=== PATIENT | female | born 2000 | race Hispanic/Latino ===

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

== ENCOUNTER 2021-09-30 19:13 | Emergency (ER) | payer BC ==
[~2021-09-30 19:13] MED LIST changes: +HYDR-3729 PO; +ONDN4T PO
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
[2021-09-30 19:52] VITALS: BP 126/83
== END 2021-09-30 19:52 | disposition home or self-care (01) ==
LOC: EDUNIT# 19:13 → ER 19:16
DX: S40.022A Contusion of left upper arm, initial encounter (principal); V86.95XA Unspecified occupant of 3- or 4- wheeled all-terrain vehicle (ATV) injured in nontraffic accident, initial encounter; Y92.410 Unspecified street and highway as the place of occurrence of the external cause
CPT/HCPCS: 99281

== ENCOUNTER 2022-02-23 14:59 | Emergency (ER) | payer BC ==
[~2022-02-23] VITALS: Ht 165.1 cm; Wt 90.7 kg
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
[2022-02-23 16:03] VITALS: BP 127/90
== END 2022-02-23 16:05 | disposition home or self-care (01) ==
LOC: EDUNIT# 14:59 → ER 15:01
DX: O26.891 Other specified pregnancy related conditions, first trimester (principal); R11.0 Nausea; Z3A.01 Less than 8 weeks gestation of pregnancy
CPT/HCPCS: 99281

== ENCOUNTER 2022-03-11 08:10 | Emergency (ER) | payer BC ==
[~2022-03-11] VITALS: Ht 162 cm; Wt 84.0 kg
--- NOTE | 2022-03-11 08:35 | ED GU-Female ---
General Chief Complaint: OB > 20 WEEKS Stated Complaint: VAGINAL BLEEDING | 8 WKS Nursing Triage Note: PT AMB TO RM 6 PT CO OF HAVING CRAMPING AND VAGINAL BLEEDING, PT STATES HAD SPOTTING THIS WEEKEND AND INCREASE IN BLEEDING LIKE PERIOD BLEEDING. PT RATE CRAMPING PAIN 08/13. PT HAS HX OF GENITAL HERPES. LMP 02/15/22. THIS IS PT FIRST Source: patient Exam Limitations: no limitations History of Present Illness Date Seen by Provider: Mar 11, 2022 Time Seen by Provider: 08:34 Initial Comments Patient is a 21-year-old female G1, P0 who presents to the emergency department with a chief complaint of vaginal bleeding onset over the last few days. LMP 01/20/22, with EGA 7 04/12' due date 10/27/22. She states that initially started out as spotting and has now progressed to a little bit heavier bleeding. She states its not quite like a menstrual cycle as of yet. She does have lower lower abdominal cramping as well as a mild headache currently. Bleeding did not come on after intercourse it started before. No fevers chills, no burning with urination. Patient tells me that she has tested positive for herpes in the past. No current outbreaks. Has already obtained her labs and reports her blood type is O+. All other review of systems reviewed and negative except as stated. Timing/Duration: other ("few days") Severity/Quality: mild Activities at Onset: none Sexual [place] History: single partner Associated Symptoms: other (headache; cramps) Allergies and Home Medications Allergies Coded Allergies: No Known Drug Allergies (Unverified , 09/21/13) Patient Home Medication List Home Medication List Reviewed: Yes Hydrocodone/Acetaminophen (Lortab 5-325 mg Tablet) 1 Each Tablet, 1-2 EACH PO Q6H Prescribed by: DOC RICKS on 04/16/16 1613 Ondansetron HCl (Zofran) 4 Mg Tab, 4 MG PO Q4H Prescribed by: FAVIAN PARKER on 04/17/16 1339 Review of Systems Review of Systems Constitutional: see HPI EENTM: no symptoms reported Respiratory: no symptoms reported Cardiovascular: no symptoms reported Gastrointestinal: abdominal pain Genitourinary: no symptoms reported : Yes Expected Date of Delivery: Oct 27, 2022 LMP: Jan 20, 2022 Psychiatric/Neurological: Headache All Other Systemes Reviewed Negative Unless Noted: Yes Past Zhtkaqa-Nhxanp-Lcfqbt Hx Patient Social History Tobacco Use?: No Substance use?: No Alcohol Use?: No Pt feels they are or have been: No Immunizations Up To Date Tetanus Booster (TDap): Unknown Influenza Vaccine Up-to-Date: No; Not Current Seasonal Allergies Seasonal Allergies: No Past Medical History Surgery/Hospitalization HX: APPY Last Menstrual Period: Feb 15, 2022 Reproductive Disorders: No Female Reproductive Disorders: Denies HIV/AIDS: No Loss of Vision: Denies Adverse Reaction/Blood Tranf: No Family Medical History No Pertinent Family Hx Physical Exam Vital Signs Vital Signs - First Documented 03/11/22 08:17 Temp 37.1 Pulse 99 Resp 18 B/P (MAP) 126/74 (91) Pulse Ox 100 Capillary Refill : Less Than 3 Seconds Height, Weight, BMI Height: 5'3.00" Weight: 168lbs. 0.0oz. [id number]; 32.00 BMI Method:Stated General Appearance: WD/WN, no apparent distress HEENT: PERRL/EOMI Cardiovascular: regular rate, rhythm Respiratory: lungs clear, normal breath sounds, no respiratory distress, no accessory muscle use Gastrointestinal: normal bowel sounds, non tender, soft Extremities: normal range of motion, normal inspection Neurologic/Psychiatric: no motor/sensory deficits, alert, normal mood/affect, oriented x 3 Skin: normal color, warm/dry Progress/Results/Core Measures Suspected Sepsis SIRS Temperature: Pulse: 99 Respiratory Rate: 18 Laboratory Tests 03/11/22 08:47: White Blood Count 5.6 Blood Pressure 126 /74 Mean: 91 Laboratory Tests 03/11/22 08:47: Platelet Count 277 Results/Orders Lab Results Laboratory Tests Test 03/11/22 08:44 03/11/22 08:47 Range/Units Urine Color YELLOW Urine Clarity CLEAR Urine pH 7.0 5-9 Urine Specific [place] <=1.005 1.016-1.022 Urine Protein NEGATIVE NEGATIVE Urine Glucose (UA) NEGATIVE NEGATIVE Urine Ketones NEGATIVE NEGATIVE Urine Nitrite NEGATIVE NEGATIVE Urine Bilirubin NEGATIVE NEGATIVE Urine Urobilinogen 0.2 < = 1.0 MG/DL Urine Leukocyte Esterase NEGATIVE NEGATIVE Urine RBC (Auto) NEGATIVE NEGATIVE Urine RBC NONE /HPF Urine WBC NONE /HPF Urine Squamous Epithelial Cells 0-2 /HPF Urine Crystals NONE /LPF Urine Bacteria NEGATIVE /HPF Urine Casts NONE /LPF Urine Mucus NEGATIVE /LPF Urine Culture Indicated NO White Blood Count 5.6 4.3-11.0 10^3/uL Red Blood Count 4.29 3.80-5.11 10^6/uL Hemoglobin 12.9 11.5-16.0 g/dL Hematocrit 37 35-52 % Mean Corpuscular Volume 87 80-99 fL Mean Corpuscular Hemoglobin 30 25-34 pg Mean Corpuscular Hemoglobin Concent 35 32-36 g/dL Red Cell Distribution Width 12.0 10.0-14.5 % Platelet Count 277 130-400 10^3/uL Mean Platelet Volume 10.4 9.0-12.2 fL Immature Granulocyte % (Auto) 0 % Neutrophils (%) (Auto) 76 H 42-75 % Lymphocytes (%) (Auto) 11 L 12-44 % Monocytes (%) (Auto) 12 0-12 % Eosinophils (%) (Auto) 1 0-10 % Basophils (%) (Auto) 0 0-10 % Neutrophils # (Auto) 4.2 1.8-7.8 10^3/uL Lymphocytes # (Auto) 0.6 L 1.0-4.0 10^3/uL Monocytes # (Auto) 0.7 0.0-1.0 10^3/uL Eosinophils # (Auto) 0.0 0.0-0.3 10^3/uL Basophils # (Auto) 0.0 0.0-0.1 10^3/uL Immature Granulocyte # (Auto) 0.0 0.0-0.1 10^3/uL Human Chorionic Gonadotropin, Quant [id number] H <5 MIU/ML My Orders Orders - RIVKA ANDERSEN MD Cbc With Automated Diff (03/11/22 09:10) Hcg,Quantitative (03/11/22 09:10) Urinalysis (03/11/22 09:10) Vital Signs/I&O Capillary Refill : Less Than 3 Seconds Blood Pressure Mean: 91 Progress Note : Time: 10:52 Progress Note Patient seen and evaluated, 21-year-old with vaginal bleeding and cramping. Evaluation today includes a CBC, urinalysis and beta quant. Her beta quant is greater than 50,000. Patient reports known blood type O POS. Pelvic exam was not performed. No complaints of or concerns for STI. Her urine is clean, no bacteria. Her CBC is normal. Bedside ultrasound was used to evaluate . Good decidual reaction was noted, yolk sac was noted. There seemed to be a hint of cardiac activity in the 80s range. Patient's vital signs have been stable. She has follow-up at [facility] with Dr. Hernandez. We will send her ou t with an outpatient order for repeat beta quant on . Precautions for threatened miscarriage given, no intercourse, no tampons, no hot baths. She verbalized understanding. All questions are sought and answered. Departure Impression Primary Impression: 7 weeks gestation of Additional Impression: Threatened miscarriage in early Disposition: HOME, SELF-CARE Condition: Stable Departure-Patient Inst. Decision time for Depature: 10:54 Referrals: [facility] (PCP/Family) Primary Care Physician Patient Instructions: Bleeding in Early ED Add. Discharge Instructions: All vaginal bleeding in early is referred to as a "threatened miscarriage". You may notice that you continue to bleed off and on over the next week. As long as the bleeding is not getting worse, heavy like a heavy menstrual period please follow-up with Dr. Hernandez. You can take extra strength Tylenol 2 tablets every 6 hours as needed for cramping. No intercourse/sex, tampons or hot baths until you are cleared by Dr. Hernandez. Continue your vitamins. Return to the emergency department for any new, concerning or emergent complai nts. I have sent you out with an order for a repeat hormone level to be obtained on . Dr. Hernandez or [facility] clinic will follow up with you on this level. your hormone level was 58,328 today. It should be over 100,000 on . Work/School Note: Work Release Form Date Seen in the Emergency Department: Mar 11, 2022 Return to Work: Mar 12, 2022 Copy Copies To 1: JAH HERNANDEZ MD, KATHRYN M MD Mar 11, 2022 08:35
[2022-03-11 09:18] LABS: BASOPHILS % (AUTO) 0 % (0-10); EOSINOPHILS % (AUTO) 1 % (0-10); HEMATOCRIT 37 % (35-52); HEMOGLOBIN 12.9 g/dL (11.5-16.0); LYMPHOCYTES # (AUTO) 0.6 10^3/uL (1.0-4.0); LYMPHOCYTES % (AUTO) 11 % (12-44); MEAN CORPUSCULAR HEMOGLOBIN 30 pg (25-34); MEAN CORPUSCULAR HGB CONC 35 g/dL (32-36); MEAN CORPUSCULAR VOLUME 87 fL (80-99); MEAN PLATELET VOLUME 10.4 fL (9.0-12.2); MONOCYTES # (AUTO) 0.7 10^3/uL (0.0-1.0); MONOCYTES % (AUTO) 12 % (0-12); NEUTROPHILS # (AUTO) 4.2 10^3/uL (1.8-7.8); NEUTROPHILS % (AUTO) 76 % (42-75); PLATELET COUNT 277 10^3/uL (130-400); WHITE BLOOD COUNT 5.6 10^3/uL (4.3-11.0)
[2022-03-11 09:29] LABS: BILIRUBIN,URINE NEGATIVE (NEGATIVE); CLARITY,URINE CLEAR; COLOR,URINE YELLOW; GLUCOSE, URINE (UA) NEGATIVE (NEGATIVE); KETONES,URINE NEGATIVE (NEGATIVE); LEUKOCYTE ESTERASE ,URINE NEGATIVE (NEGATIVE); NITRITE,URINE NEGATIVE (NEGATIVE); PROTEIN,URINE NEGATIVE (NEGATIVE)
[2022-03-11 09:39] LABS: BACTERIA,URINE NEGATIVE /HPF; SQUAMOUS EPITHELIAL CELL,UR 0-2 /HPF
[2022-03-11 11:14] VITALS: BP 126/74
== END 2022-03-11 11:14 | disposition home or self-care (01) ==
LOC: EDUNIT# 08:10 → ER 08:13
DX: O20.0 Threatened abortion (principal); Z3A.01 Less than 8 weeks gestation of pregnancy; Z28.310 Unvaccinated for COVID-19
CPT/HCPCS: 36415; 81000; 84702; 85025; 99282

== ENCOUNTER → 2022-03-13 | Outpatient (CLI) | payer BC | LOC: LAB 16:47 | PROVIDERS: ATTEND Registered Nurse | DX: O20.0 Threatened abortion (principal) | CPT/HCPCS: 36415; 84702 ==

== ENCOUNTER 2022-10-20 00:58 | Inpatient (IN) | payer BC, MEDICAID ==
[~2022-10-20] VITALS: Ht 162.6 cm; Wt 91.4 kg
[2022-10-20] VITALS (70 sets, daily range): BP systolic 88–152; BP diastolic 51–106
[2022-10-20] MEDS ORDERED: MINERAL OIL 30 ML UDC TOP PRN (02:15)
[2022-10-20 02:25] LABS: BASOPHILS % (AUTO) 0 % (0-10); EOSINOPHILS # (AUTO) 0.1 10^3/uL (0.0-0.3); EOSINOPHILS % (AUTO) 1 % (0-10); HEMATOCRIT 36 % (35-52); HEMOGLOBIN 12.4 g/dL (11.5-16.0); LYMPHOCYTES # (AUTO) 1.9 10^3/uL (1.0-4.0); LYMPHOCYTES % (AUTO) 19 % (12-44); MEAN CORPUSCULAR HEMOGLOBIN 29 pg (25-34); MEAN CORPUSCULAR HGB CONC 34 g/dL (32-36); MEAN CORPUSCULAR VOLUME 85 fL (80-99); MEAN PLATELET VOLUME 10.8 fL (9.0-12.2); MONOCYTES # (AUTO) 0.8 10^3/uL (0.0-1.0); MONOCYTES % (AUTO) 8 % (0-12); NEUTROPHILS # (AUTO) 6.9 10^3/uL (1.8-7.8); NEUTROPHILS % (AUTO) 70 % (42-75); PLATELET COUNT 255 10^3/uL (130-400); WHITE BLOOD COUNT 9.9 10^3/uL (4.3-11.0)
[2022-10-20 02:27] LABS: BILIRUBIN,URINE NEGATIVE (NEGATIVE); CLARITY,URINE CLOUDY; COLOR,URINE YELLOW; GLUCOSE, URINE (UA) NEGATIVE (NEGATIVE); KETONES,URINE NEGATIVE (NEGATIVE); LEUKOCYTE ESTERASE ,URINE 1+ (NEGATIVE); NITRITE,URINE NEGATIVE (NEGATIVE); PROTEIN,URINE 1+ (NEGATIVE)
[2022-10-20] MEDS ORDERED: D5 LR IV SOLUTION 1,000 ML IV ONE (02:45)
[2022-10-20] MEDS: D5 LR IV SOLUTION 1,000 ML IV SCH ×3 (02:49→18:22)
[2022-10-20] MEDS ORDERED: BUTORPHANOL INJ 2 MG/ML (STADOL) VIAL IV PRN (03:00)
[2022-10-20 03:11] LABS: AMORPHOUS SEDIMENT,UR LARGE AMOR URATES /LPF; BACTERIA,URINE FEW /HPF; WBC,URINE 25-50 /HPF
[2022-10-20 03:12] LABS: YEAST,URINE FEW /HPF
[2022-10-20] MEDS ORDERED: CATHETER FLUSH 10 ML SYR IV SCH ×2 (06:00→22:00)
--- NOTE | 2022-10-20 07:14 | History & Physical-OB ---
KIMBERLY ROBERTS MD 10/20/22 0714: OB - Chief Complaint & HPI Date/Time Date of Admission: Date of Admission: Oct 20, 2022 at 01:48 Date seen by a Provider: Oct 20, 2022 Time Seen by a Provider: 07:00 Chief Complaint/History OB-Reason for Admission/Chief: Onset of Labor (Pt felt SROM around 0000 on 10/20/22. She reported a burst of clear fluid leakage. She reported to OB triage around 0100 on 10/20/22. She declined epidural pain management. First cervical check was 2/80/-3 at 0200. This provider saw the patient at 0700 on 10/20/22 and repeat cervical check was completed around 0720, which was 4/80/-2. Verbal confirmation of GBS NEG status from clinic in [place] was given upon admission. ) Hx : 1 Hx Para: 0 Hx Last Menstrual Period: 01/2022 Expected Date of Delivery: Nov 02, 2022 Gestational Age in Weeks: 38 Gestational Age in Days: 1 Indication for induction: other (SROM) History of Labs See [facility] initial and routine OB records from clinic in [place] Other Onset of labor with favorable cervix, LOF. Allergies and Home Medications Allergies Coded Allergies: No Known Drug Allergies (Unverified , 09/21/13) Patient Home Medication List Home Medication List Reviewed: Yes Vit/Iron Fumarate/FA ( Vitamins Tablet) 28 Mg Iron-800 Mcg Tablet, 1 EACH PO DAILY, (Reported) Entered as Reported by: KIMBERLY ROBERTS on 10/20/22 1150 Last Action: Reviewed Discontinued Medications Hydrocodone/Acetaminophen (Lortab 5-325 mg Tablet) 1 Each Tablet, 1-2 EACH PO Q6H Prescribed by: DOC RICKS on 04/16/16 1613 Last Action: Discontinued Ondansetron HCl (Zofran) 4 Mg Tab, 4 MG PO Q4H Prescribed by: FAVIAN PARKER on 04/17/16 1339 Last Action: Discontinued OB - History Hx of Present Care: Yes Ultrasounds: Other (Awaiting outside records for review of US) Obstetrical Complications: None Medical Complications: None Obstetrical History Hx : 1 Hx Para: 0 Hx Termination: No Hx Multiple Gestation: No Hx Ectopic : No Hx Stillbirth: No Hx Complication: No Hx Induced Hypertens: No Hx Maternal Gestational Diabet: No Hx Hemorrhage: No Delivery History Hx Blood Disorders: No Adverse Rxn to Tranfusion: No Patient Past Medical History No significant medical Hx. Immunizations Hepatitis A: No Hepatitis B: No Tetanus Booster (TDap): Unknown OB - Admission Exam Physical Exam Vitals: Vital Signs 10/20/22 03:10 Temp 36.0 Pulse 75 Resp 18 B/P (MAP) 123/65 (84) Pulse Ox 98 O2 Delivery Room Air HEENT: Oropharynx Normal Heart: Rhythm Normal Lungs: Clear Abdomen: Gravid Extremities: Normal Cervical Dilatation: 4cm Effacement: Other (80) Station: -2 Membranes: Ruptured Amniotic Fluid: Clear Heart Rate: 130's Accelerations: Accelerations Present Decelerations: No Decelerations Short Term Variability: Present Mental Health Practitioner Variability: Average (6-25) Contractions on Admission: < 5 Minutes Apart Intensity: Mild Ferrara Scoring Tool (Modified) Dilation (cm): 3-4cm (2) Effacement (%): 80-100% (3) Descent/Station: -2 (1) Cervix Consistency: Soft (2) Cervix Position: Anterior (2) Ferrara Score: 10 Labs Laboratory Tests Test 10/20/22 02:00 Range/Units White Blood Count 9.9 4.3-11.0 10^3/uL Red Blood Count 4.22 3.80-5.11 10^6/uL Hemoglobin 12.4 11.5-16.0 g/dL Hematocrit 36 35-52 % Mean Corpuscular Volume 85 80-99 fL Mean Corpuscular Hemoglobin 29 25-34 pg Mean Corpuscular Hemoglobin Concent 34 32-36 g/dL Red Cell Distribution Width 12.4 10.0-14.5 % Platelet Count 255 130-400 10^3/uL Mean Platelet Volume 10.8 9.0-12.2 fL Immature Granulocyte % (Auto) 1 % Neutrophils (%) (Auto) 70 42-75 % Lymphocytes (%) (Auto) 19 12-44 % Monocytes (%) (Auto) 8 0-12 % Eosinophils (%) (Auto) 1 0-10 % Basophils (%) (Auto) 0 0-10 % Neutrophils # (Auto) 6.9 1.8-7.8 10^3/uL Lymphocytes # (Auto) 1.9 1.0-4.0 10^3/uL Monocytes # (Auto) 0.8 0.0-1.0 10^3/uL Eosinophils # (Auto) 0.1 0.0-0.3 10^3/uL Basophils # (Auto) 0.0 0.0-0.1 10^3/uL Immature Granulocyte # (Auto) 0.1 0.0-0.1 10^3/uL Urine Color YELLOW Urine Clarity CLOUDY Urine pH 7.0 5-9 Urine Specific [place] 1.020 1.016-1.022 Urine Protein 1+ H NEGATIVE Urine Glucose (UA) NEGATIVE NEGATIVE Urine Ketones NEGATIVE NEGATIVE Urine Nitrite NEGATIVE NEGATIVE Urine Bilirubin NEGATIVE NEGATIVE Urine Urobilinogen 1.0 < = 1.0 MG/DL Urine Leukocyte Esterase 1+ H NEGATIVE Urine RBC (Auto) TRACE-I H NEGATIVE Urine RBC 2-5 H /HPF Urine WBC 25-50 H /HPF Urine Squamous Epithelial Cells 10-25 H /HPF Urine Crystals PRESENT H /LPF Urine Amorphous Sediment LARGE YOSHI URATES H /LPF Urine Bacteria FEW H /HPF Urine Casts NONE /LPF Urine Mucus NEGATIVE /LPF Urine Yeast FEW H /HPF Urine Culture Indicated YES Syphilis Total Antibody Negative Negative OB - Assessment/Plan/Diagnosis Assessment Assessment: rupture of membranes Admission Dx SROM with initiation of labor Admission Status: Inpatient Order (span 2 midnights) Reason for Inpatient Admission: Initiation of labor, positive contractions and SROM. Plan Plan: Expectant Management, Induction Induction Method: per Pitocin Protocol Reason for Induction: Favorable cervix JAH HERNANDEZ MD 10/20/222021: Allergies and Home Medications Allergies Coded Allergies: No Known Drug Allergies (Unverified , 09/21/13) Patient Home Medication List Vit/Iron Fumarate/FA ( Vitamins Tablet) 28 Mg Iron-800 Mcg Tablet, 1 EACH PO DAILY, (Reported) Entered as Reported by: KIMBERLY ROEBRTS on 10/20/22 1150 Last Action: Reviewed Discontinued Medications Hydrocodone/Acetaminophen (Lortab 5-325 mg Tablet) 1 Each Tablet, 1-2 EACH PO Q6H Prescribed by: DOC RICKS on 04/16/16 1613 Last Action: Discontinued Ondansetron HCl (Zofran) 4 Mg Tab, 4 MG PO Q4H Prescribed by: FAVIAN PARKER on 04/17/16 1339 Last Action: Discontinued Supervisory-Addendum Brief Supervisory Addendum I have personally performed a history and physical with the patient and agree with assessment and plan as documented by the resident. KIMBERLY ROBERTS MD Oct 20, 2022 07:14 JAH HERNANDEZ MD Oct 20, 2022 20:22
[2022-10-20] MEDS ORDERED: OXYTOCIN PRE-MIX DRIP 500 ML IV SCH (07:15)
[2022-10-20] MEDS ORDERED: PREN1TAB19 PO (11:50)
--- NOTE | 2022-10-20 14:15 | OB Triage Report ---
Standard Progress Note Progress Notes/Assess & Plan Date Seen by a Provider: Oct 20, 2022 Time Seen by a Provider: 13:45 Expected Date of Delivery: Nov 02, 2022 (early US keeps ADITI at 10/28/22) Gestational Age in Weeks: 38 Gestational Age in Days: 6 LMP/ADITI Comment: LMP 01/15/23, c/b 1st trimester US, ADITI 10/28/22 Progress/Assessment & Plan At ~1345, provider requested at bedside as Pt requesting break from contractions and would like the Pitocin turned off. This provider explained to Pt that even if the Pitocin was turned off that it might not stop her contractions as she is in the active phase of labor. Most recent SVE /-1. Pt continued to state that she would like a break and would like to try without Pitocin running for the next while. Provider notified RN to stop Pitocin, will reassess FHT and Pt in the next hour. Diagnosis/Problems Diagnosis/Problems (1) 38 weeks gestation of KIMBERLY ROBERTS MD Oct 20, 2022 14:14
[2022-10-20] MEDS ORDERED: fentaNYL 2 mcg/ml BUPIVA 0.125 100 ML ONE (15:31)
[2022-10-20] MEDS ORDERED: fentaNYL INJ 100 MCG/2 ML AMP ONE (16:16)
[2022-10-20] MEDS ORDERED: BUPIVACAINE 0.25% 10 ML (SENSORCAINE) VIAL ONE (16:17)
[2022-10-20] MEDS ORDERED: fentaNYL INJ 100 MCG/2 ML AMP INJ ONE (16:45)
[2022-10-20] MEDS ORDERED: NALOXONE 0.4 MG/ML 1 ML (NARCAN) VIAL IV PRN (16:45)
[2022-10-20] MEDS ORDERED: fentaNYL 2 mcg/ml BUPIVA 0.125 100 ML EPI SCH (16:45)
[2022-10-20] MEDS ORDERED: ONDANSETRON 4 MG/2 ML (SDV) Z0FRAN IV PRN (16:45)
[2022-10-20] MEDS ORDERED: LACTATED RINGERS 1,000 ML IV ONE ×2 (16:45)
--- NOTE | 2022-10-20 18:48 | OB Triage Report ---
Standard Progress Note Progress Notes/Assess & Plan Date Seen by a Provider: Oct 20, 2022 Time Seen by a Provider: 18:00 Expected Date of Delivery: Nov 02, 2022 (early US keeps ADITI at 10/28/22) Gestational Age in Weeks: 38 Gestational Age in Days: 6 LMP/ADITI Comment: LMP 01/15/23, c/b 1st trimester US, ADITI 10/28/22 Progress/Assessment & Plan SVE at 1800 8/90/-1. Fetus was having late decelerations after cervical check. Pt was repositioned twice, high-flow O2 running, fetus continued to have late decelerations. Pitocin was stopped at 1815 and Pt was positioned on her right side. Fetus responded well to these changes, baseline FH returned to 130s, moderate variability, POS accels, no further decelerations were observed. Will reassess in 30 mins for possible restart of Pitocin. Next SVE @ 1999. Diagnosis/Problems Diagnosis/Problems (1) 38 weeks gestation of KIMBERLY ROBERTS MD Oct 20, 2022 18:47
[2022-10-20] MEDS ORDERED: OXYTOCIN PRE-MIX DRIP 500 ML IV ONE (19:06)
[2022-10-20] MEDS ORDERED: METHYLERGONOVINE 0.2 MG/ML (METHERGINE) AMP ONE ×2 (19:07→20:30)
[2022-10-20] MEDS ORDERED: CARBOPROST (HEMABATE) 250 MCG/ML AMP IM ONE (19:07)
[2022-10-20] MEDS: OXYTOCIN PRE-MIX DRIP 500 ML IV SCH ×2 (19:14→21:59)
[2022-10-20] MEDS ORDERED: LIDOCAINE 1% INJ 10 ML VIAL ONE (19:40)
[2022-10-20] MEDS ORDERED: LIDOCAINE 1% INJ 10 ML VIAL INJ ONE (19:45)
--- NOTE | 2022-10-20 20:25 | OB Labor & Delivery Record ---
KIMBERLY ROBERTS MD 10/20/222024: Vag Delivery Note Vag Delivery Note Date of Delivery: 10/20/22 Preoperative Diagnosis: Claudia Archibald is a (21 /Para 1 / 0, Gestational Age (wks)38with [6d ] Postoperative Diagnosis: Same Surgeon: KIMBERLY ROBERTS Software Configuration Analyst: [Jah Jimenez] Anesthesia: [Epidural] Delivery Type: [spontaneous vaginal] Findings: [none] Viable [male] , apgars [9, 9], weight [7lbs 4oz] Lacerations: [Left labial, right vaginal wall extending to labia, periurethral ] Intact placenta with 3 vessel cord. No nuchal cord, body cord or shoulder dystocia Quantitative Blood Loss: [300] ml Complications: None Condition: Stable Description of Procedure: The patient is a 21 year old female who presented [to OB triage in labor with contractions and SROM]. She was admitted and informed consent was obtained. Her labor course was [remarkable for augmentation with pitocin]. She progressed to complete dilatation and began to push. She was then set up for delivery. The 's head was delivered atraumatically in the [CAROLYN] position. The shoulders and remainder of the 's body were then delivered without difficulty. Upon delivery, the infant was vigorous and placed on maternal chest and the mouth and nares were bulb suctioned. After a delay cord was doubly clamped and cut and the infant remained on maternal chest. An intact placenta with 3-vessel cord delivered via Libra and there was found to be minimal bleeding.~ Vigorous fundal massage was performed and the fundus was found to be firm. IV oxytocin was given. Examination of the vagina and brittani neum revealed a [left labial, and right vaginal wall extending into labia, periurethral] lacerations repaired in the usual fashion with 3-0 vicryl rapide suture. Following the repair, sponge, instrument and needle counts were correct. Mom and baby were both in stable condition in the labor suite. Vitals - Labs Vital Signs - I&O Vital Signs Date Time Temp Pulse Resp B/P (MAP) Pulse Ox O2 Delivery O2 Flow Rate FiO2 10/20/22 20:02 85 20 98 Room Air 10/20/22 19:56 115/70 (85) 10/20/22 19:41 107/62 (77) 10/20/22 19:27 115/56 (75) 10/20/22 19:13 149/82 (104) 10/20/22 19:06 37.0 95 18 138/74 (95) 100 Room Air 10/20/22 18:42 73 18 95/53 (67) 100 Non Rebreather 15.00 10/20/22 18:27 78 18 91/54 (66) 100 Non Rebreather 15.00 10/20/22 18:12 78 18 98/61 (73) 100 Non Rebreather 15.00 10/20/22 18:04 71 18 110/57 (74) 100 Non Rebreather 15.00 10/20/22 18:00 83 18 99/54 (69) 100 Non Rebreather 15.00 10/20/22 17:52 69 18 106/55 (72) 100 Non Rebreather 15.00 10/20/22 17:40 72 18 111/60 (77) 100 Non Rebreather 15.00 10/20/22 17:37 80 18 101/60 (74) 100 Non Rebreather 15.00 10/20/22 17:32 68 18 103/58 (73) 100 Non Rebreather 15.00 10/20/22 17:28 77 18 96/54 (68) 100 Non Rebreather 15.00 10/20/22 17:24 81 18 88/54 (65) 100 Non Rebreather 15.00 10/20/22 17:20 80 18 95/51 (66) 100 Non Rebreather 15.00 10/20/22 17:15 81 18 106/64 (78) 98 Non Rebreather 15.00 10/20/22 17:12 75 18 106/62 (77) 98 Room Air 10/20/22 17:08 37.0 75 18 105/62 (76) 98 Room Air 10/20/22 17:00 86 18 102/62 (75) 98 Room Air 10/20/22 16:55 89 18 116/60 (78) 98 Room Air 10/20/22 16:52 79 18 111/66 (81) 97 Room Air 10/20/22 16:40 97 18 107/59 (75) 99 Room Air 10/20/22 16:35 89 18 116/70 (85) 98 Room Air 10/20/22 16:30 81 18 123/80 (94) 99 Room Air 10/20/22 16:28 83 18 118/66 (83) 99 Room Air 10/20/22 16:18 72 18 128/71 (90) 98 Room Air 10/20/22 16:02 71 18 124/71 (88) Room Air 10/20/22 15:48 75 18 136/80 (98) Room Air 10/20/22 15:33 69 18 134/68 (90) Room Air 10/20/22 15:18 81 18 118/83 (95) Room Air 10/20/22 15:02 73 18 134/82 (99) Room Air 10/20/22 14:47 65 18 135/76 (95) Room Air 10/20/22 14:33 75 18 129/68 (88) Room Air 10/20/22 14:18 68 18 132/65 (87) Room Air 10/20/22 14:02 36.7 72 18 123/76 (92) Room Air 10/20/22 13:48 69 18 123/76 (92) Room Air 10/20/22 13:40 74 18 123/72 (89) Room Air 10/20/22 13:02 64 18 113/76 (88) Room Air 10/20/22 12:48 71 18 116/76 (89) Room Air 10/20/22 12:33 75 18 131/80 (97) Room Air 10/20/22 12:18 83 18 133/81 (98) Room Air 10/20/22 12:04 36.7 72 18 129/76 (93) Room Air 10/20/22 11:48 78 18 134/83 (100) Room Air 10/20/22 11:33 64 18 127/81 (96) Room Air 10/20/22 11:18 67 18 124/94 (104) Room Air 10/20/22 11:03 70 18 129/79 (96) Room Air 10/20/22 10:49 76 18 112/62 (79) Room Air 10/20/22 10:33 75 18 152/106 (121) Room Air 10/20/22 10:18 68 18 118/81 (93) Room Air 10/20/22 10:03 64 18 131/89 (103) Room Air 10/20/22 09:48 60 18 120/73 (89) Room Air 10/20/22 09:33 36.5 65 18 136/78 (97) Room Air 10/20/22 09:05 60 18 118/77 (91) Room Air 10/20/22 08:49 67 18 128/65 (86) Room Air 10/20/22 08:34 64 18 126/83 (97) Room Air 10/20/22 08:18 61 18 123/72 (89) Room Air 10/20/22 08:03 36.5 68 18 119/75 (90) Room Air 10/20/22 07:48 66 18 114/76 (89) Room Air 10/20/22 07:30 69 18 121/75 (90) Room Air 10/20/22 03:10 36.0 75 18 123/65 (84) 98 Room Air 10/20/22 01:13 36.4 76 18 108/74 (85) 98 Room Air 10/20/22 01:13 36.4 76 18 98 Room Air Labs Laboratory Tests 10/20/22 02:00: White Blood Count 9.9, Red Blood Count 4.22, Hemoglobin 12.4, Hematocrit 36, Mean Corpuscular Volume 85, Mean Corpuscular Hemoglobin 29, Mean Corpuscular Hemoglobin Concent 34, Red Cell Distribution Width 12.4, Platelet Count 255, Mean Platelet Volume 10.8, Immature Granulocyte % (Auto) 1, Neutrophils (%) (Auto) 70, Lymphocytes (%) (Auto) 19, Monocytes (%) (Auto) 8, Eosinophils (%) (Auto) 1, Basophils (%) (Auto) 0, Neutrophils # (Auto) 6.9, Lymphocytes # (Auto) 1.9, Monocytes # (Auto) 0.8, Eosinophils # (Auto) 0.1, Basophils # (Auto) 0.0, Immature Granulocyte # (Auto) 0.1, Urine Color YELLOW, Urine Clarity CLOUDY, Urine pH 7.0, Urine Specific [place] 1.020, Urine Protein 1+H, Urine Glucose (UA) NEGATIVE, Urine Ketones NEGATIVE, Urine Nitrite NEGATIVE, Urine Bilirubin NEGATIVE, Urine Urobilinogen 1.0, Urine Leukocyte Esterase 1+H, Urine RBC (Auto) TRACE-IH, Urine RBC 2-5H, Urine WBC 25-50H, Urine Squamous Epithelial Cells 10- 25H, Urine Crystals PRESENTH, Urine Amorphous Sediment LARGE YOSHI URATESH, Urine Bacteria FEWH, Urine Casts NONE, Urine Mucus NEGATIVE, Urine Yeast FEWH, Urine Culture Indicated YES, Syphilis Total Antibody Negative Microbiology 10/20/22 Urine Culture - Preliminary, Resulted NO GROWTH JAH JIMENEZ MD 10/20/22 2221: Supervisory-Addendum Brief Supervisory Addendum I was present for the entire procedure performed by the resident and agree with the documentation. KIMBERLY ROBERTS MD Oct 20, 2022 20:25 JAH JIMENEZ MD Oct 20, 2022 22:21
[2022-10-20] MEDS ORDERED: BENZOCAINE/MENTHOL (DERMOPLAST) 56 ML CAN TP PRN (20:30)
[2022-10-20] MEDS ORDERED: TETANUS,DIPTH,PERTUSS P/F (BOOSTRIX) 0.5 ML VIAL IM ONE (20:30)
[2022-10-20] MEDS: WITCH HAZEL(TUCKS) 40 EA JAR TOP PRN (21:57)
[2022-10-20] MEDS: IBUPROFEN 600 MG (MOTRIN) TAB PO SCH (21:58)
[2022-10-20] MEDS: DOCUSATE SODIUM 100 MG (COLACE) CAP PO SCH (21:58)
[2022-10-21 01:18] VITALS: BP 104/52
[2022-10-21 04:27] VITALS: BP 101/54
[2022-10-21] MEDS: IBUPROFEN 600 MG (MOTRIN) TAB PO SCH ×4 (04:32→22:04)
[2022-10-21 05:31] LABS: BASOPHILS % (AUTO) 0 % (0-10); EOSINOPHILS # (AUTO) 0.1 10^3/uL (0.0-0.3); EOSINOPHILS % (AUTO) 0 % (0-10); HEMATOCRIT 31 % (35-52); HEMOGLOBIN 10.6 g/dL (11.5-16.0); LYMPHOCYTES % (AUTO) 14 % (12-44); MEAN CORPUSCULAR HEMOGLOBIN 29 pg (25-34); MEAN CORPUSCULAR HGB CONC 34 g/dL (32-36); MEAN CORPUSCULAR VOLUME 86 fL (80-99); MEAN PLATELET VOLUME 10.8 fL (9.0-12.2); MONOCYTES # (AUTO) 1.3 10^3/uL (0.0-1.0); MONOCYTES % (AUTO) 9 % (0-12); NEUTROPHILS # (AUTO) 11.1 10^3/uL (1.8-7.8); NEUTROPHILS % (AUTO) 76 % (42-75); PLATELET COUNT 223 10^3/uL (130-400); WHITE BLOOD COUNT 14.6 10^3/uL (4.3-11.0)
--- NOTE | 2022-10-21 06:50 | Postpartum Progress Note ---
Note Note Day # 1 Subjective: Patient is without complaints. Ambulating, voiding. Tolerating a regular diet without nausea or vomiting. Normal lochia. Pain is well controlled with oral pain medications. Breast feeding. Objective: Vital Signs 10/20/22 10/21/22 18:42 04:27 Temp 36.6 Pulse 72 Resp 20 B/P (MAP) 101/54 (70) Pulse Ox 97 O2 Delivery Room Air O2 Flow Rate 15.00 Physical Exam: General - Alert and oriented, no apparent distress Heart - RRR Lungs - CTAB Abdomen - Soft, appropriately tender to palpation, non-distended, fundus firm at umbilicus Extremities - no edema Assessment: post- day # 1, status post spontaneous vaginal delivery. Recovering well, hemodynamically stable Asymptomatic anemia Plan: Routine care. Encourage breast feeding. Encourage ambulation. Ferrous sulfate supplementation. Plan for discharge tomorrow Vitals - Labs Vital Signs - I&O Vital Signs Date Time Temp Pulse Resp B/P (MAP) Pulse Ox O2 Delivery O2 Flow Rate FiO2 10/21/22 04:27 36.6 72 20 101/54 (70) 97 Room Air 10/21/22 01:18 37.2 82 20 104/52 (69) 97 Room Air 10/20/22 21:57 93 114/66 (82) Room Air 10/20/22 21:26 82 117/70 (86) Room Air 10/20/22 21:11 98 111/72 (85) Room Air 10/20/22 20:56 82 107/73 (84) Room Air 10/20/22 20:41 93 107/80 (89) Room Air 10/20/22 20:27 86 109/78 (88) Room Air 10/20/22 20:02 85 20 98 Room Air 10/20/22 19:56 115/70 (85) 10/20/22 19:41 107/62 (77) 10/20/22 19:27 115/56 (75) 10/20/22 19:13 149/82 (104) 10/20/22 19:06 37.0 95 18 138/74 (95) 100 Room Air 10/20/22 18:42 73 18 95/53 (67) 100 Non Rebreather 15.00 10/20/22 18:27 78 18 91/54 (66) 100 Non Rebreather 15.00 10/20/22 18:12 78 18 98/61 (73) 100 Non Rebreather 15.00 10/20/22 18:04 71 18 110/57 (74) 100 Non Rebreather 15.00 10/20/22 18:00 83 18 99/54 (69) 100 Non Rebreather 15.00 10/20/22 17:52 69 18 106/55 (72) 100 Non Rebreather 15.00 10/20/22 17:40 72 18 111/60 (77) 100 Non Rebreather 15.00 10/20/22 17:37 80 18 101/60 (74) 100 Non Rebreather 15.00 10/20/22 17:32 68 18 103/58 (73) 100 Non Rebreather 15.00 10/20/22 17:28 77 18 96/54 (68) 100 Non Rebreather 15.00 10/20/22 17:24 81 18 88/54 (65) 100 Non Rebreather 15.00 10/20/22 17:20 80 18 95/51 (66) 100 Non Rebreather 15.00 10/20/22 17:15 81 18 106/64 (78) 98 Non Rebreather 15.00 10/20/22 17:12 75 18 106/62 (77) 98 Room Air 10/20/22 17:08 37.0 75 18 105/62 (76) 98 Room Air 10/20/22 17:00 86 18 102/62 (75) 98 Room Air 10/20/22 16:55 89 18 116/60 (78) 98 Room Air 10/20/22 16:52 79 18 111/66 (81) 97 Room Air 10/20/22 16:40 97 18 107/59 (75) 99 Room Air 10/20/22 16:35 89 18 116/70 (85) 98 Room Air 10/20/22 16:30 81 18 123/80 (94) 99 Room Air 10/20/22 16:28 83 18 118/66 (83) 99 Room Air 10/20/22 16:18 72 18 128/71 (90) 98 Room Air 10/20/22 16:02 71 18 124/71 (88) Room Air 10/20/22 15:48 75 18 136/80 (98) Room Air 10/20/22 15:33 69 18 134/68 (90) Room Air 10/20/22 15:18 81 18 118/83 (95) Room Air 10/20/22 15:02 73 18 134/82 (99) Room Air 10/20/22 14:47 65 18 135/76 (95) Room Air 10/20/22 14:33 75 18 129/68 (88) Room Air 10/20/22 14:18 68 18 132/65 (87) Room Air 10/20/22 14:02 36.7 72 18 123/76 (92) Room Air 10/20/22 13:48 69 18 123/76 (92) Room Air 10/20/22 13:40 74 18 123/72 (89) Room Air 10/20/22 13:02 64 18 113/76 (88) Room Air 10/20/22 12:48 71 18 116/76 (89) Room Air 10/20/22 12:33 75 18 131/80 (97) Room Air 10/20/22 12:18 83 18 133/81 (98) Room Air 10/20/22 12:04 36.7 72 18 129/76 (93) Room Air 10/20/22 11:48 78 18 134/83 (100) Room Air 10/20/22 11:33 64 18 127/81 (96) Room Air 10/20/22 11:18 67 18 124/94 (104) Room Air 10/20/22 11:03 70 18 129/79 (96) Room Air 10/20/22 10:49 76 18 112/62 (79) Room Air 10/20/22 10:33 75 18 152/106 (121) Room Air 10/20/22 10:18 68 18 118/81 (93) Room Air 10/20/22 10:03 64 18 131/89 (103) Room Air 10/20/22 09:48 60 18 120/73 (89) Room Air 10/20/22 09:33 36.5 65 18 136/78 (97) Room Air 10/20/22 09:05 60 18 118/77 (91) Room Air 10/20/22 08:49 67 18 128/65 (86) Room Air 10/20/22 08:34 64 18 126/83 (97) Room Air 10/20/22 08:18 61 18 123/72 (89) Room Air 10/20/22 08:03 36.5 68 18 119/75 (90) Room Air 10/20/22 07:48 66 18 114/76 (89) Room Air 10/20/22 07:30 69 18 121/75 (90) Room Air l I & O 10/21/22 07:00 Intake Total 1546 ml Balance 1546 ml Labs Laboratory Tests 10/21/22 05:12: White Blood Count 14.6H, Red Blood Count 3.64L, Hemoglobin 10.6L, Hematocrit 31L , Mean Corpuscular Volume 86, Mean Corpuscular Hemoglobin 29, Mean Corpuscular Hemoglobin Concent 34, Red Cell Distribution Width 12.3, Platelet Count 223, Mean Platelet Volume 10.8, Immature Granulocyte % (Auto) 1, Neutrophils (%) (Auto) 76H, Lymphocytes (%) (Auto) 14, Monocytes (%) (Auto) 9, Eosinophils (%) (Auto) 0, Basophils (%) (Auto) 0, Neutrophils # (Auto) 11.1H, Lymphocytes # (Auto) 2.0, Monocytes # (Auto) 1.3H, Eosinophils # (Auto) 0.1, Basophils # (Auto) 0.0, Immature Granulocyte # (Auto) 0.1 Microbiology 10/20/22 Urine Culture - Preliminary, Resulted NO GROWTH JAH HERNANDEZ MD Oct 21, 2022 06:50
[2022-10-21] MEDS ORDERED: IBUP-844 PO (06:51)
[2022-10-21] MEDS ORDERED: FERR325T24 PO (06:51)
[2022-10-21] MEDS ORDERED: DOCU100C37 PO (06:51)
--- NOTE | 2022-10-21 08:00 | Anesthesia-Regional Post-Op ---
Regional Patient Condition Mental Status: Alert, Oriented x3 Circulation: Same as Pre-Op Headache: Absent Sensation: Full Recovery Motor Block: Absent Post Op Complications Complications None Follow Up Care/Instructions Patient Instructions None needed. Anesthesia/Patient Condition Patient is doing well, no complaints, stable vital signs, no apparent adverse anesthesia problems. No complications reported per nursing. D/C home per [facility] [place] Criteria: Yes VANIA ROWLEY CRNA Oct 21, 2022 08:00
[2022-10-21 10:00] VITALS: BP 120/60
[2022-10-21] MEDS: DOCUSATE SODIUM 100 MG (COLACE) CAP PO SCH ×2 (10:12→22:04)
[2022-10-21] MEDS: FERROUS SULF 325 MG (IRON) TAB PO SCH (10:12)
[2022-10-21 13:30] VITALS: BP 110/60
[2022-10-21 16:23] VITALS: BP 111/71
[2022-10-21 20:15] VITALS: BP 105/59
[2022-10-22 02:00] VITALS: BP 104/58
[2022-10-22] MEDS: IBUPROFEN 600 MG (MOTRIN) TAB PO SCH ×2 (05:11→11:14)
[2022-10-22] MEDS: FERROUS SULF 325 MG (IRON) TAB PO SCH (06:36)
--- NOTE | 2022-10-22 06:39 | Discharge Summary ---
Discharge Summary Hospital Course Hospital Course Date of Admission: Oct 20, 2022 at 01:48 Admission Diagnosis : Spontaneous rupture of membranes at full term [facility]: 10/22/22 Discharge Diagnosis: s/p spontaneous vaginal delivery asymptomatic acute blood loss anemia Hospital Course: Pt admitted after SROM at home, had labor augmented with pitocin, had with labial and vaginal wall laceration repair. course uncomplicated. Labs and Pending Lab Test: Microbiology 10/20/22 Urine Culture - Preliminary, Resulted Culture In Progress Home Meds Active Docusate Sodium 100 Mg Capsule 100 Mg PO BID PRN Ibu (Ibuprofen) 600 Mg Tablet 600 Mg PO Q6H PRN Ferosul (Ferrous Sulfate) 325 Mg (65 Mg Iron) Tablet 325 Mg PO DAILY@0700 Reported Vitamins Tablet ( Vit/Iron Fumarate/FA) 28 Mg Iron-800 Mcg Tablet 1 Each PO DAILY Assessment/Pt DC Instructions Follow up with Dr. Rodríguez in 6 weeks for visit. Discharge Diet: Regular Diet Activity as Tolerated: Yes (avoid strenuous activity for 6 weeks) Discharge Physical Examination Allergies: Coded Allergies: No Known Drug Allergies (Unverified , 09/21/13) General Appearance: No Apparent Distress, WD/WN Respiratory: Lungs Clear, Normal Breath Sounds Cardiovascular: Regular Rate, Rhythm, No Murmur Gastrointestinal: Other (fundus firm and nontender, below umbilicus) Skin: Warm/Dry Neurologic/Psychiatric: Alert JAH HERNANDEZ MD Oct 22, 2022 06:39
[2022-10-22 08:30] VITALS: BP 116/77
[2022-10-22] MEDS: DOCUSATE SODIUM 100 MG (COLACE) CAP PO SCH (08:32)
[2022-10-22] MEDS: WITCH HAZEL(TUCKS) 40 EA JAR TOP PRN (08:43)
[2022-10-22 13:06] VITALS: BP 116/77
== END 2022-10-22 13:30 | disposition home or self-care (01) | DRG 806 ==
LOC: WSo 00:58 → LDRP 00:59 → WSo 01:47 → LDRP 01:48
PROVIDERS: ADMIT Family Medicine; ATTEND Family Medicine
PROC: 10E0XZZ Delivery of Products of Conception, External Approach (ICD-10-PCS; principal; 2022-10-20)
PROC: 0KQM0ZZ Repair Perineum Muscle, Open Approach (ICD-10-PCS; 2022-10-20)
PROC: 0UQMXZZ Repair Vulva, External Approach (ICD-10-PCS; 2022-10-20)
DX: O70.0 First degree perineal laceration during delivery (principal); D62 Acute posthemorrhagic anemia; Z37.0 Single live birth; O90.81 Anemia of the puerperium; O71.82 Other specified trauma to perineum and vulva; Z3A.38 38 weeks gestation of pregnancy
CPT/HCPCS: 36415; 81000; 85025; 86780; 86850; 86900; 86901; 87088; 99213